=== PATIENT | female | born 1975 | race Caucasian/White ===

== ENCOUNTER 2024-11-04 01:56 | Emergency (ER) | payer OTHER ==
[~2024-11-04] VITALS: Ht 167.6 cm; Wt 81.6 kg
[2024-11-04] MEDS ORDERED: GELATIN SPONGE,ABSORBABLE 1 SPONGE SPONGE TP ONE (03:13)
[2024-11-04] MEDS ORDERED: ACETAMINOPHEN 325 MG TABLET ONE (03:17)
[2024-11-04] MEDS: ACETAMINOPHEN 325 MG TABLET PO ONE (03:19)
[2024-11-04] MEDS: GELATIN SPONGE,ABSORBABLE 1 SPONGE SPONGE TP ONE (03:20)
[2024-11-04 03:30] VITALS: BP 117/80; TEMP 98.4; O2SAT 98
== END 2024-11-04 03:31 | disposition home or self-care (01) ==
LOC: ER 02:02
DX: L76.22 Postprocedural hemorrhage of skin and subcutaneous tissue following other procedure (principal); N64.4 Mastodynia; Z88.0 Allergy status to penicillin; Z88.1 Allergy status to other antibiotic agents
CPT/HCPCS: 99282; A6403